=== PATIENT | female | born 1980 | race Caucasian/White ===

== ENCOUNTER 2021-08-25 05:46 | Emergency (ER) | payer BC ==
[~2021-08-25] VITALS: Ht 165.1 cm; Wt 97.7 kg
[2021-08-25] MEDS ORDERED: LORazepam 2 mg/ml vial IV ONE (07:05)
[2021-08-25 08:31] LABS: BASOPHILS % (AUTO) 0.4 % (0-1); EOSINOPHILS # (AUTO) 0.1 X10'3 (0-0.9); EOSINOPHILS % (AUTO) 0.9 % (0-6); HEMATOCRIT 41.6 % (35.0-45.0); HEMOGLOBIN 14.3 g/dl (12.0-16.0); LYMPHOCYTES # (AUTO) 1.9 X10'3 (1.1-4.8); LYMPHOCYTES % (AUTO) 23.3 % (21-51); MEAN CORPUSCULAR HGB CONC 34.4 g/dL (33.0-36.5); MEAN CORPUSCULAR VOLUME 98.8 FL (78-98); MEAN PLATELET VOLUME 8.5 FL (7.4-10.4); MONOCYTES # (AUTO) 0.6 X10'3 (0-0.9); MONOCYTES % (AUTO) 6.8 % (2-12); NEUTROPHILS # (AUTO) 5.6 X10'3 (1.8-7.7); NEUTROPHILS % (AUTO) 68.6 % (42-75); PLATELET COUNT 206 X10'3 (140-440); RED BLOOD COUNT 4.21 X10'6 (4.20-5.60); RED CELL DISTRIBUTION WIDTH 13.6 % (11.5-14.5); WHITE BLOOD COUNT 8.2 X10'3 (4.5-11.0)
[2021-08-25 08:40] LABS: ALANINE AMINOTRANSFERASE 30 U/L (12-78); ALBUMIN 3.5 G/DL (3.4-5.0); ALBUMIN/GLOBULIN RATIO 0.9 (1.1-1.5); ALKALINE PHOSPHATASE 78 IU/L (46-116); ANION GAP 8 (8-16); ASPARTATE AMINO TRANSFERASE 47 U/L (10-37); BILIRUBIN,TOTAL 0.6 MG/DL (0.1-1.0); BLOOD UREA NITROGEN 14 MG/DL (7-18); BUN/CREATININE RATIO 17.3 (6.6-38.0); CALCIUM 8.5 MG/DL (8.5-10.1); CHLORIDE 103 MMOL/L (99-107); CREATININE 0.81 MG/DL (0.40-0.90); GLUCOSE 109 MG/DL (70-104); POTASSIUM 3.8 MMOL/L (3.5-5.1); SODIUM 138 MMOL/L (135-145); TOTAL CARBON DIOXIDE 26.7 MMOL/L (24-32); TOTAL PROTEIN 7.5 G/DL (6.4-8.2); eGFR 78 ML/MIN
[2021-08-25 09:06] LABS: D-DIMER 0.79 MG/L FEU (0-0.50)
[2021-08-25] MEDS ORDERED: FURO-150 PO (11:43)
[2021-08-25] MEDS ORDERED: furosemide 10 MG/1 ML 10ml inj IV ONE (11:45)
[2021-08-25 12:30] VITALS: BP 157/113
== END 2021-08-25 12:43 | disposition home or self-care (01) ==
LOC: ER 05:47
DX: I50.9 Heart failure, unspecified (principal); G89.29 Other chronic pain; F17.210 Nicotine dependence, cigarettes, uncomplicated; F12.90 Cannabis use, unspecified, uncomplicated; Z79.899 Other long term (current) drug therapy
CPT/HCPCS: 36415; 71045; 78582; 80053; 83880; 84484; 85025; 85379; 85610; 93005; 96374; 96375; 99285; A9539; A9540; J1940; J2060

== ENCOUNTER 2024-03-01 15:19 | Emergency (ER) | payer MEDICAID, OTHER ==
[~2024-03-01] VITALS: Ht 165.1 cm; Wt 118.5 kg
[~2024-03-01 15:19] MED LIST: CARV6.253 PO; FURO-149 PO; LISI5TAB22 PO; NITR0.4T51 SL; NO HOME MEDS; SPIR25TA PO
[2024-03-01 15:45] VITALS: BP 210/131; PULSE 90; O2SAT 98
[2024-03-01] MEDS ORDERED: MELO-102 PO (17:02)
[2024-03-01 17:13] VITALS: RESP 16
[2024-03-01] MEDS: ketorolac trometh 30MG/ML vial 30 MG/ML VIAL IM STA (17:13)
[2024-03-01 17:17] VITALS: TEMP 97.8
== END 2024-03-01 17:19 | disposition home or self-care (01) ==
LOC: ER 15:19
DX: M25.562 Pain in left knee (principal); G89.29 Other chronic pain; M54.9 Dorsalgia, unspecified; I10 Essential (primary) hypertension; F12.90 Cannabis use, unspecified, uncomplicated; Z79.899 Other long term (current) drug therapy
CPT/HCPCS: 73564; 96372; 99283; J1885